=== PATIENT | female | born 1950 | race Caucasian/White ===

== ENCOUNTER 2024-10-09 16:41 | Emergency (ER) | payer MEDICARE, SELFPAY ==
--- NOTE | ~2024-10-09 | XR_ITS ---
CHEST RADIOGRAPH CLINICAL HISTORY: chest pain, rash . COMPARISON: None available TECHNIQUE: Single portable view of the chest. FINDINGS The cardiomediastinal silhouette is unremarkable. The lungs are clear. IMPRESSION: No focal infiltrate or effusion. Reviewed, dictated and finalized at location A.
[2024-10-09 16:46] VITALS: BP 97/64; PULSE 99; RESP 20; TEMP 36.4; O2SAT 98
--- NOTE | 2024-10-09 17:03 | ECG_ITS ---
Test Date: 2024-10-09 17:14:48 Measurements Intervals Gamaliel Rate: 90 P: 0 AR: 0 QRS: 52 QRSD: 92 T: 56 QT: 360 QTc: 442 Interpretive Statements ATRIAL FIBRILLATION WITH ABERRANT CONDUCTION OR VENTRICULAR PREMATURE COMPLEXES NONSPECIFIC ST & T-WAVE ABNORMALITY- DIFFUSE LEADS BASELINE WANDER- V1 ABNORMAL ECG No previous ECG available for comparison Electronically Signed On 10-09-2024 18:24:24 CDT by Trenton Cloud D.O.
--- NOTE | 2024-10-09 17:08 | ED.ALLEREA ---
HPI - Allergic Reaction General Chief complaint: Allergic Reaction <Albaro Salgado APRN - Last Filed: 10/09/24 17:10> Stated complaint: chest pain, ? allergic reaction <Albaro Salgado APRN - Last Filed: 10/09/24 17:10> Time Seen by Provider: 10/09/24 17:07 <Albaro Salgado APRN - Last Filed: 10/09/24 17:10> 74-year-old female brought in by EMS today complaining of chest pain in a possible urgent reaction. Patient says she start aspirin and Eliquis 2 days ago for history of AFib. Patient says she was taking her has been home when she developed nausea while driving. At a family member's house to lay down. After that she developed chest tightness and noticed a pruritic rash throughout her entire body. Patient is given Benadryl by EMS. Patient states she no longer feels itchy but still reports having chest tightness along with the rash. Patient denies any wheezing, difficulty breathing, swelling to her face, tongue, throat, nausea vomiting, or other symptoms. Focused HPI: GENERAL: Well-appearing, well-nourished, and in no acute distress. HEAD: Normocephalic, atraumatic. THROAT: Posterior pharynx is clear without any swelling, redness, or drainage. Uvula midline. CHEST: Clear to auscultation. Respiratory rate normal, respiratory effort nonlabored, no respiratory distress HEART: Regular rate and rhythm.? NEURO: ?Alert and oriented x3. SKIN: Hives scattered throughout the patient's trunk, arms, legs. Patient screened in triage and initial orders placed.? ?Additional care and disposition to be based upon?diagnostic testing and treatment. <Albaro Salgado APRN - Last Filed: 10/09/24 17:10> Related Data Allergies/adverse reactions: Allergies Allergy/AdvReac Type Severity Reaction Status Date / Time NONE Allergy Other Uncoded 10/09/24 17:04 <Albaro Salgado APRN - Last Filed: 10/09/24 17:10> Exam Narrative: APPEARANCE: No apparent distress. Head: atraumatic. EYES: EOMI, NOSE: Atraumatic NECK: Trachea midline RESPIRATORY: No increased rate of breathing clear to auscultation CARDIOVASCULAR: RRR, no peripheral edema ABDOMINAL: Non-distended soft nontender MUSCULOSKELETAl: No obvious deformities NEURO: Alert. Moving 4/4 extremities SKIN:: Pruritic rash over the abdomen PSYCHIATRIC: Normal affect <Jomar Moses MD - Last Filed: 10/09/24 21:14> Course Vital Signs Vital signs: Vital Signs Temperature 97.5 F L 10/09/24 16:46 Pulse Rate 99 10/09/24 16:46 Respiratory Rate 20 10/09/24 16:46 Blood Pressure 97/64 L 10/09/24 16:46 Pulse Oximetry 98 10/09/24 16:46 Oxygen Delivery Room Air 10/09/24 16:46 Temperature 97.5 F L 10/09/24 16:46 Pulse Rate 80 10/09/24 18:09 Respiratory Rate 18 10/09/24 18:09 Blood Pressure 142/82 H 10/09/24 18:09 Pulse Oximetry 100 10/09/24 18:09 Oxygen Delivery Room Air 10/09/24 17:17 <Albaro Salgado APRN - Last Filed: 10/09/24 17:10> Vital Signs Temperature 97.5 F L 10/09/24 16:46 Pulse Rate 99 10/09/24 16:46 Respiratory Rate 20 10/09/24 16:46 Blood Pressure 97/64 L 10/09/24 16:46 Pulse Oximetry 98 10/09/24 16:46 Oxygen Delivery Room Air 10/09/24 16:46 Temperature 97.5 F L 10/09/24 16:46 Pulse Rate 80 10/09/24 18:09 Respiratory Rate 18 10/09/24 18:09 Blood Pressure 142/82 H 10/09/24 18:09 Pulse Oximetry 100 10/09/24 18:09 Oxygen Delivery Room Air 10/09/24 17:17 <Jomar Moses MD - Last Filed: 10/09/24 21:14> MDM - Allergic Reaction MDM Narrative Medical decision making narrative: -Course: 74-year-old female presenting with a pruritic rash. Patient treated with Benadryl and Solu-Medrol with some improvement symptoms. She did not have chest pain that had resolved by time I evaluated her. EKG showed AFib with normal ventricular response. troponins negative x2 Chest x-ray was clear. Labs showed some minor electrolyte abnormalities which were repleted. Patient took a nap in our emergency department. When she awoke her symptoms had improved dramatically. She no longer has discoloration of her hands or per a rash. She is comfortable going home at this time. Patient will be discharged with instructions use Zyrtec as needed for itching. She will call her primary care physician tomorrow morning for follow-up. -DDX includes but is not limited to: Allergic reaction, anaphylaxis, ACS, viral syndrome, pneumonia <Jomar Moses MD - Last Filed: 10/09/24 21:14> Lab Data Result diagrams: 10/09/24 17:27 10/09/24 17:27 <Albaro Salgado APRN - Last Filed: 10/09/24 17:10> Labs: Lab Results 10/09/24 10/09/24 Range/Units 17:27 19:59 WBC 12.5 H (4.5-10.0) K/mm3 RBC 4.53 (4.2-5.4) M/mm3 Hgb 14.2 (12.0-15.0) g/dL Hct 40.9 (37.0-47.0) % MCV 90.3 (80-100) fl MCH 31.3 (26-34) pg MCHC 34.7 (32-36) g/dl RDW 12.9 (11.5-14.5) % Plt Count 239 (150-375) k/mm3 MPV 11.0 H (7.4-10.4) fl Immature Gran % (Auto) 0.4 (0-0.5) % Neut % (Auto) 70.3 (45.5-73.1) % Lymph % (Auto) 25.4 (18.3-44.2) % [place] % (Auto) 3.3 (2.6-8.5) % Eos % (Auto) 0.4 (0-4.4) % Baso % (Auto) 0.2 (0.2-1.2) % Lymph # (Auto) 3.17 (0.9-3.2) K/mm3 [place] # (Auto) 0.4 (0.1-0.6) K/mm3 Eos # (Auto) 0.1 (0-0.3) K/mm3 Baso # (Auto) 0.0 (0.0-0.1) K/mm3 Abs Immat Gran (auto) 0.05 H (0.00-0.031) K/mm3 Absolute Neuts (auto) 8.8 H (1.3-6.7) K/mm3 Absolute Nucleated RBC 0.000 (0.0-0.012) K/mm3 Nucleated RBC % 0.0 (0.0-0.2) % PT 15.6 H (11.1-14.7) Seconds INR 1.3 APTT 29.2 (22.3-36.8) Seconds Sodium 128 L (137-145) mmol/L Potassium 3.2 L (3.4-5.0) mmol/L Chloride 94 L (98-107) mmol/L Carbon Dioxide 25 (22-30) mmol/L Anion Gap 9 (4-12) mmol/L BUN 22 H (7-17) mg/dL Creatinine 1.14 H (0.7-1.0) mg/dL Estim Creat Clear Calc 41 ml/min Estimated GFR 46 L (59 - ) Glucose 172 H (65-110) mg/dL Calcium 9.3 (8.4-10.2) mg/dL Total Bilirubin 1.0 (0.2-1.3) mg/dL AST 45 H (14-36) U/L ALT 35 (6-35) U/L Alkaline Phosphatase 99 (38-126) U/L Troponin I < 0.012 Pending (0.000-0.034) ng/mL Total Protein 6.2 L (6.3-8.2) g/dL Albumin 3.8 (3.5-5.1) g/dL <Albaro Salgado, HOSPITALITY HOUSEKEEPER - Last Filed: 10/09/24 17:10> Lab Results 10/09/24 10/09/24 Range/Units 17:27 19:59 WBC 12.5 H (4.5-10.0) K/mm3 RBC 4.53 (4.2-5.4) M/mm3 Hgb 14.2 (12.0-15.0) g/dL Hct 40.9 (37.0-47.0) % MCV 90.3 (80-100) fl MCH 31.3 (26-34) pg MCHC 34.7 (32-36) g/dl RDW 12.9 (11.5-14.5) % Plt Count 239 (150-375) k/mm3 MPV 11.0 H (7.4-10.4) fl Immature Gran % (Auto) 0.4 (0-0.5) % Neut % (Auto) 70.3 (45.5-73.1) % Lymph % (Auto) 25.4 (18.3-44.2) % [place] % (Auto) 3.3 (2.6-8.5) % Eos % (Auto) 0.4 (0-4.4) % Baso % (Auto) 0.2 (0.2-1.2) % Lymph # (Auto) 3.17 (0.9-3.2) K/mm3 [place] # (Auto) 0.4 (0.1-0.6) K/mm3 Eos # (Auto) 0.1 (0-0.3) K/mm3 Baso # (Auto) 0.0 (0.0-0.1) K/mm3 Abs Immat Gran (auto) 0.05 H (0.00-0.031) K/mm3 Absolute Neuts (auto) 8.8 H (1.3-6.7) K/mm3 Absolute Nucleated RBC 0.000 (0.0-0.012) K/mm3 Nucleated RBC % 0.0 (0.0-0.2) % PT 15.6 H (11.1-14.7) Seconds INR 1.3 APTT 29.2 (22.3-36.8) Seconds Sodium 128 L (137-145) mmol/L Potassium 3.2 L (3.4-5.0) mmol/L Chloride 94 L (98-107) mmol/L Carbon Dioxide 25 (22-30) mmol/L Anion Gap 9 (4-12) mmol/L BUN 22 H (7-17) mg/dL Creatinine 1.14 H (0.7-1.0) mg/dL Estim Creat Clear Calc 41 ml/min Estimated GFR 46 L (59 - ) Glucose 172 H (65-110) mg/dL Calcium 9.3 (8.4-10.2) mg/dL Total Bilirubin 1.0 (0.2-1.3) mg/dL AST 45 H (14-36) U/L ALT 35 (6-35) U/L Alkaline Phosphatase 99 (38-126) U/L Troponin I < 0.012 Pending (0.000-0.034) ng/mL Total Protein 6.2 L (6.3-8.2) g/dL Albumin 3.8 (3.5-5.1) g/dL <Jomar Moses MD - Last Filed: 10/09/24 21:14> Discharge Plan Discharge Clinical Impression: Allergic reaction <Albaro Salgado APRN - Last Filed: 10/09/24 17:10> Patient Disposition: Home <Albaro Salgado APRN - Last Filed: 10/09/24 17:10> Condition: Stable <Albaro Salgado APRN - Last Filed: 10/09/24 17:10> Instructions: Antibiotic Form, General Allergic Reaction (ED) <Albaro Salgado APRN - Last Filed: 10/09/24 17:10> Additional Instructions: You were seen in emergency department for allergic reaction. Please use Benadryl or Zyrtec as needed for itching. If you develop chest pain difficulty breathing or worsening symptoms he can return to the ED for re-evaluation. Please call your primary care physician tomorrow morning to arrange close follow-up next 5-7 days. <Albaro Salgado APRN - Last Filed: 10/09/24 17:10> Patient Language: Danish <Albaro Salgado APRN - Last Filed: 10/09/24 17:10> Follow-up/Referrals: PHYSICIAN NOT ON STAFF,NONSTAFF [Primary Care Provider] - <Albaro Salgado APRN - Last Filed: 10/09/24 17:10>
[2024-10-09 17:11] VITALS: BP 120/69; PULSE 91; RESP 23; O2SAT 99
[2024-10-09] MEDS: SODIUM CHLORIDE 0.9% IV 500 ML 999 ML IV CONT (17:13)
[2024-10-09] MEDS: FAMOTIDINE 20 MG/2 ML VIAL IV PUSH (17:14)
[2024-10-09 17:17] VITALS: O2SAT 100
[2024-10-09 17:34] LABS: Hematocrit 40.9 % (37.0-47.0); Hemoglobin 14.2 g/dL (12.0-15.0); Immature Granulocyte Percent A 0.4 % (0-0.5); Lymphocytes Absolute Auto 3.17 K/mm3 (0.9-3.2); Mean Corpuscular HGB Conc 34.7 g/dl (32-36); Mean Corpuscular Hemoglobin 31.3 pg (26-34); Mean Corpuscular Volume 90.3 fl (80-100); Nucleated Red Blood Cells Absolute Auto 0.000 K/mm3 (0.0-0.012); Nucleated Red Blood Cells Perc 0.0 % (0.0-0.2); Platelet Count Result 239 k/mm3 (150-375); Red Blood Count 4.53 M/mm3 (4.2-5.4); White Blood Count 12.5 K/mm3 (4.5-10.0)
[2024-10-09 17:44] LABS: INR 1.3; Prothrombin Time 15.6 Seconds (11.1-14.7)
[2024-10-09 17:45] LABS: Partial Thromboplastin Time 29.2 Seconds (22.3-36.8)
[2024-10-09 18:02] LABS: Troponin I < 0.012 ng/mL (0.000-0.034)
[2024-10-09 18:09] VITALS: BP 142/82; PULSE 80; RESP 18; O2SAT 100
[2024-10-09 19:09] LABS: Alanine Aminotransferase 35 U/L (6-35); Albumin Level 3.8 g/dL (3.5-5.1); Alkaline Phosphatase 99 U/L (38-126); Anion Gap 9 mmol/L (4-12); Aspartate Amino Transferase 45 U/L (14-36); Bilirubin,Total 1.0 mg/dL (0.2-1.3); Blood Urea Nitrogen 22 mg/dL (7-17); Calcium 9.3 mg/dL (8.4-10.2); Carbon Dioxide 25 mmol/L (22-30); Chloride 94 mmol/L (98-107); Estimated CRCL calculation 41 ml/min; Estimated Glomerular Filt Rate 46; Glucose 172 mg/dL (65-110); Potassium 3.2 mmol/L (3.4-5.0); Sodium 128 mmol/L (137-145); Total Protein 6.2 g/dL (6.3-8.2)
--- OUTSIDE RECORDS SUMMARY | 2024-10-09 19:15 | XMS_ITS | Clinical Summary ---
Author Organization [facility] Address [address] [place] [id number] Care Team Providers Care Employee Benefits Coordinator Name Role Phone Delphine Fernández MD Primary Care Provider Allergies No known active allergies Active Problems Problem Noted Date Diagnosed Date GERD (gastroesophageal reflux disease) Essential (primary) hypertension 12/18/2014 Hyperlipidemia 01/02/2008 Encounters Date Type Department Care Team Description 10/03/2024 12:27 AM CDT - 10/03/2024 5:07 AM CDT Emergency [facility] Emergency Department [address] [place] [address] Cesar White MD PhD Chest pain, unspecified type (Primary Dx); Atrial fibrillation, unspecified type (HCC) Discharge Disposition: Discharge to home or self care from Last 3 Months Medical History Medical History Date Comments Hypertension Social History Tobacco Use Types Packs/Day Years Used Date Smoking Tobacco: Never Smokeless Tobacco: Never Tobacco Cessation:Counseling Given: Not Answered Alcohol Use Standard Drinks/Week Comments Never 0 (1 standard drink = 0.6 oz pur e alcohol) Personal Safety Answer Date Recorded Have you ever been in or are you currently in a harmful physical or emotional relationship or is someone making you feel afraid or unsafe? 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 Gender Identity Not on file Sexual Orientation Not on file Obstetrics History Last Filed Vital Signs Vital Sign Reading Time Taken Comments Blood Pressure 168/97 10/03/2024 5:00 AM CDT Pulse 67 10/03/2024 5:00 AM CDT Temperature 36.4 C (97.5 F) 10/03/2024 1:28 AM CDT Respiratory Rate 14 10/03/2024 5:00 AM CDT Oxygen Saturation 100% 10/03/2024 5:00 AM CDT Inhaled Oxygen Concentration - - Weight 90.7 kg (200 lb) 10/03/2024 12:33 AM CDT Height 162.6 cm (5' 4) 10/03/2024 12:33 AM CDT Body Mass Index 34.33 10/03/2024 12:33 AM CDT Plan of Treatment Health Maintenance Due Date Last Done Comments Colon Cancer Screening-Colonoscopy 1950 Depression Screening 1950 Fall Risk Assessment 1950 Hepatitis C Screening 1950 Osteoporosis Screening-Bone Density Scan 1950 Hepatitis B Screening 09/18/1967 Pneumococcal vaccine 65+ (1 of 1 - PCV) 09/18/1999 Zoster Vaccine (1 of 2) 09/18/1999 DTaP/Tdap/Td Vaccine (1 - Tdap) 07/06/2003 4 Well Visit 65+ 2014 Influenza Vaccine (#1) 2024 03/14/2008 Procedures Procedure Name Priority Date/Time Associated Diagnosis Comments TROPONIN T HIGH-SENSITIVITY 2-HOUR Timed 10/03/2024 2:32 AM CDT XR CHEST PA LATERAL 2 VIEWS ED 10/03/2024 1:22 AM CDT EGFR STAT 10/03/2024 12:47 AM CDT DIFFERENTIAL AUTO STAT 10/03/2024 12: 47 AM CDT D-DIMER, QUANTITATIVE STAT 10/03/2024 12:47 AM CDT TROPONIN T HIGH-SENSITIVITY SERIES (BASELINE, 2HR, 4HR, 6HR) STAT 10/03/2024 12:47 AM CDT COMPREHENSIVE METABOLIC PANEL STAT 10/03/2024 12:47 AM CDT CBC WITH AUTO DIFFERENTIAL STAT 10/03/2024 12:47 AM CDT ECG 12-LEAD STAT 10/03/2024 12:34 AM CDT from Last 3 Months Results * Troponin T high-sensitivity 2-hour (10/03/2024 2:32 AM CDT) Trop T hs 13 <=14 ng/L Comment: Interpretive Data For further hscTnT resources including the diagnostic algorithm and an aid in interpretation, copy and paste this link: https://nrl.testcatalog.org/show/hsTrop Current Interpretive Data last revised 2020. Trop T hs delta -1 ng/L [facility] Trop T hs interp Insignificant [facility]ERNER PH C Blood 10/03/2024 2:32 AM CDT 10/03/2024 2:33 AM CDT us Cesar White MD PhD LAB BLOOD ORDERABLE S Final Result [facility] [address] [facility] Department [place] [address] * XR Chest PA Lateral 2 Views (If patient hemodynamically stable and ambulatory) (10/03/2024 1:22 AM CDT) Anatomical Region Laterality Modality Body, Chest N/A Computed Radiogr aphy 10/03/2024 8:27 AM CDT Impressions 10/03/2024 8:27 AM CDT No evidence of acute cardiopulmonary process. Electronically signed by: Jesus Padron M.D. Narrative 10/03/2024 8:27 AM CDT CHEST TWO VIEWS COMPARISON: None. HISTORY: chest pain FINDINGS: Lungs are fully expanded and clear. No focal consolidation or nodule/mass. Pulmonary vasculature is within normal limits. Cardiac silhouette is normal in size and contour. The mediastinum and osvaldo appear unremarkable. Diaphragms are normal in position and contour. Costophrenic angles are sharp. Bony thorax shows no acute abnormalities. No free air under the diaphragm. Procedure Note Jesus Padron MD - 10/03/2024 CHEST TWO VIEWS COMPARISON: None. HISTORY: chest pain FINDINGS: Lungs are fully expanded and clear. No focal consolidation or nodule/mass. Pulmonary vasculature is within normal limits. Cardiac silhouette is normal in size and contour. The mediastinum and osvaldo appear unremarkable. Diaphragms are normal in position and contour. Costophrenic angles are sharp. Bony thorax shows no acute abnormalities. No free air under the diaphragm. IMPRESSION: No evidence of acute cardiopulmonary process. Electronically signed by: Jesus Padron M.D. us Cesar White MD PhD IMG XR PROCEDURES F inal Result * Troponin T high-sensitivity series (baseline, 2hr, 4hr, 6hr) (10/03/2024 12:47 AM CDT) Trop T hs 14 <=14 ng/L Comment: Interpretive Data For further hscTnT resources including the diagnostic algorithm and an aid in interpretation, copy and paste this link: https://nrl.testcatalog.org/show/hsTrop Current Interpretive Data last revised 2020. Blood 10/03/2024 12:4 7 AM CDT 10/03/2024 12:49 AM CDT us Cesar White MD PhD LAB BLOOD ORDERABLE S Final Result [facility] [address] [facility] Department [place] [address] * (ABNORMAL) eGFR (10/03/2024 12:47 AM CDT) eGFR 59(L) >=60 mL/min/1. 73 m2 Comment: Interpretive Data Reference Interval Normal >/= 90 mL/min/1.73m2 Mildly decreased* 60 - 89 mL/min/1.73m2 Mildly to moderately decreased 45 - 59 mL/min/1.73m2 Moderately to severely decreased 30 - 44 mL/min/1.73m2 Severely decreased 15 - 29 mL/min/1.73m2 Kidney Failure < 15 mL/min/1.73m2 *Relative to young adult level Estimated glomerular filtration rate is determined by the 2020 CKD-EPI equation recommended by the National Kidney Foundation (A Unifying Approach to GFR Estimation: Recommendations of the NKF-ASK Task Force on Reassessing the Inclusion of Race in Diagnosing Kidney Disease, JASN 2020). The CKD-EPI equation should not be used for patients with unstable renal function and has not been validated in children and those over 70. Current interpretive data was last reviewed 2021. Blood 10/03/2024 12:4 7 AM CDT 10/03/2024 12:49 AM CDT us Cesar White MD PhD LAB BLOOD ORDERABLE S Final Result [facility] [address] [facility] Department [place] [address] * (ABNORMAL) Differential, auto (10/03/2024 12:47 AM CDT) Neutrophil abs 4.14 1.50 - 6.50 K/cumm Imm gran abs 0.03 0.00 - 0.10 K/cumm [facility] Lymphocyte abs 3.32(H) 0.80 - 3.30 K/cumm [facility] Monocyte abs 0.75 0.20 - 0.80 K/cumm [facility] Eosinophil abs 0.12 0.00 - 0.50 K/cumm [facility] Basophil abs 0.04 0.00 - 0.10 K/cumm [facility] Neutrophil pct 49.3 % [facility] Comment: Interpretive Data Percent cell count reference ranges are not reported, since discordance with absolute values may lead to misinterpretation of CBC data. Current Interpretive Data was last revised on 2017. Imm gran pct 0.4 % [facility] Comment: Interpretive Data Percent cell count reference ranges are not reported, since discordance with absolute values may lead to misinterpretation of CBC data. Current Interpretive Data was last revised on 2017. Lymphocyte pct 39.5 % [facility] Comment: Interpretive Data Percent cell count reference ranges are not reported, since discordance with absolute values may lead to misinterpretation of CBC data. Current Interpretive Data was last revised on 2017. Monocyte pct 8.9 % [facility] Comment: Interpretive Data Percent cell count reference ranges are not reported, since discordance with absolute values may lead to misinterpretation of CBC data. Current Interpretive Data was last revised on 2017. Eosinophil pct 1.4 % [facility] Comment: Interpretive Data Percent cell count reference ranges are not reported, since discordance with absolute values may lead to misinterpretation of CBC data. Current Interpretive Data was last revised on 2017. Basophil pct 0.5 % [facility] Comment: Interpretive Data Percent cell count reference ranges are not reported, since discordance with absolute values may lead to misinterpretation of CBC data. Current Interpretive Data was last revised on 2017. Blood 10/03/2024 12:4 7 AM CDT 10/03/2024 12:49 AM CDT Cesar White MD PhD LAB BLOOD ORDERABLE S Final Result [facility] [address] [facility] Department [place] [address] * CBC with auto differential (10/03/2024 12:47 AM CDT) WBC 8.40 3.80 - 9.90 K/cumm Hgb 13.5 11.9 - 15.5 g/dL [facility] Hct 38.3 35.6 - 45.5 % [facility] Plt 220 150 - 400 K/cumm [facility] MPV 10.7 9.1 - 12.3 fL [facility] RBC 4.24 3.90 - 5.20 M/cumm [facility] MCV 90.3 81.3 - 96.4 fL [facility] MCH 31.8 27.1 - 33.3 pg [facility] MCHC 35.2 32.3 - 35.7 g/dL [facility] RDW CV 12.8 11.1 - 14.9 % [facility] RDW SD 41.4 35.7 - 48.1 fL [facility] NRBC abs 0.00 0.00 - 0.01 K/cumm [facility] Blood Venous blood specimen / Unknown 10/03/2024 12:47 AM CDT 10/03/2024 12:49 AM CDT Cesar White MD PhD LAB BLOOD ORDERABLE S Final Result Performing Organization Address [facility] Co de Phone Number [facility] [address] [facility] [place] [address] * D-dimer, quantitative (10/03/2024 12:47 AM CDT) D-Dimer 461 <=499 ng/mL FEU Comment: Interpretive data FDA approved the D-dimer, in conjunction with a low or moderate pretest probability score, to exclude venous thromboembolic events (VTE) (PE and DVT) in outpatients when the D-dimer result is < 500 ng/ml FEU. Evidence supports using an age-adjusted D-dimer cut-off for outpatients older than 50 (age x 10) to improve specificity without sacrificing sensitivity. Example: age 68, VTE cut-off 680 ng/ml FEU. References; Schouten HT et al. Brit Med J. 2013;346:f2492. Lillie et al. Annals Int Med. 2015;163:701-11. Current interpretive data was last revised on 2019. Blood 10/03/2024 12:4 7 AM CDT 10/03/2024 12:49 AM CDT Cesar White MD PhD LAB BLOOD ORDERABLE S Final Result Performing Organization Address [facility] Co de Phone Number [facility] [address] [facility] [place] [address] * (ABNORMAL) Comprehensive metabolic panel (10/03/2024 12:47 AM CDT) Pathologist [facility] Sodium 136 135 - 145 mmol/L Potassium, pl 3.9 3.3 - 4.9 mmol/L [facility] Chloride 94(L) 97 - 110 mmol/L [facility] CO2 30 22 - 32 mmol/L [facility] Anion gap 12 2 - 15 mmol/L [facility] BUN 20 6 - 25 mg/dL [facility] Creatinine 0.99 0.60 - 1.10 mg/dL [facility] Glucose 116 70 - 199 mg/dL [facility] Comment: Interpretive Data Fasting glucose >/= 126 mg/dl is diagnostic for diabetes. Fasting is defined as no caloric intake for at least 8 hours. Fasting glucose between 100 mg/dl to 125 mg/dl is diagnostic of prediabetes. In a patient with classic symptoms of hyperglycemia or hyperglycemic crisis, a random glucose >/= 200 mg/dl is diagnostic for diabetes. In the absence of unequivocal hyperglycemia, results should be confirmed by repeat testing. The classification and Diagnosis of Diabetes Diabetes Care 202; 46: S19-S40. Current interpretive data was last revised 2022. Calcium 9.7 8.5 - 10.3 mg/dL [facility] Bilirubin, total 0.6 0.1 - 1.2 mg/dL [facility] Protein, pl 6.6 6.5 - 8.5 g/dL [facility] Albumin 4.0 3.5 - 5.0 g/dL [facility] Alk phos 112 40 - 130 Units/L [facility] ALT 30 7 - 45 Units/L [facility] AST 35 10 - 45 Units/L [facility] Comment:HEMOLYZED; Blood 10/03/2024 12:4 7 AM CDT 10/03/2024 12:49 AM CDT us Cesar White MD PhD LAB BLOOD ORDERABLE S Final Result [facility] [address] [facility] Department [place] [address] * ECG 12 lead (10/03/2024 12:34 AM CDT) 10/03/2024 12:3 4 AM CDT Narrative [facility] - 10/03/2024 10:27 AM CDT Vent Rate: 78 bpm RR Interval: 768 msec NE Interval: 0 msec QRS Duration: 98 msec QT Interval: 379 msec QTC Interval: 412 msec P-R-T [place]: [id number] - 77 - 48 degrees IMPRESSION: ATRIAL FIBRILLATION MINIMAL ST DEPRESSION ABNORMAL RHYTHM ECG Electronically Signed By: Mehnaz Michelle MD us Cesar White MD PhD ECG ORDERABLES Fin al Result [facility] from Last 3 Months Insurance MEDICARE [facility] [place] [id number] Care Teams Employee Benefits Coordinator Relationship Specialty Start Date End Date Delphine Fernández MD [address] [facility] [address] [place] [address] PCP - General Family Medicine 10/03/24
--- OUTSIDE RECORDS SUMMARY | 2024-10-09 19:15 | XMS_ITS | Encounter Summary ---
Author Organization [facility] Address [address] [place] [address] Care Team Providers Care Crop Consultant Name Role Phone Pradeep Delphine Stuart DO Primary Care Provider [phone] Chiqui Heath APNP Unavailable [phone] Reason for Visit * Reason Comments Image (SCAN) ECG (SCAN) Lab (SCAN) Encounter Details Date Type Department Care Team (Late st Contact Info) Description 10/03/2024 Scan HEALTH INFO [facility] Scanned, [facility] Image (SCAN); ECG (SCAN); Lab (SCAN) Social History Tobacco Use Types Packs/Day Years Used Date Smoking Tobacco: Never Passive Smoke Exposure: Never Smokeless Tobacco: Never Alcohol Use Standard Drinks/Week Comments Not Currently 0 (1 standard drink = 0.6 oz pur e alcohol) rarely AUDIT-C Answer Date Recorded Frequency of Alcohol Consumption Never 09/13/2018 Average Number of Drinks Not on file 019 Frequency of Binge Drinking Not on file 09/03 PHQ-2 Answer Date Recorded Patient Health Questionnaire-2 Score 0 09/30/2024 Comments No Sex and Gender Information Value Date Recorded Sex Assigned at Female 09/30/2024 2:59 PM CDT Legal Sex Female 6:20 PM CDT Gender Identity Not on file Sexual Orientation Not on file documented as of this encounter Plan of Treatment Upcoming Encounters Date Type Department Care Team (Late st Contact Info) Description 10/22/2024 9:00 AM CDT Appointment [facility] [address] [place] [address] Delphine Fernández, [address] [place] [address] documented as of this encounter Procedures Procedure Name Priority Date/Time Associated Diagnosis Comments ECG GENERIC (SCAN ORDER) 10/03/2024 OUTSIDE LAB (SCAN ORDER) 10/03/2024 OUTSIDE LAB (SCAN ORDER) 10/03/2024 OUTSIDE LAB (SCAN ORDER) 10/03/2024 OUTSIDE LAB (SCAN ORDER) 10/03/2024 IMAGE GENERIC 10/03/2024 documented in this encounter Results * OUTSIDE LAB (SCAN ORDER) (10/03/2024) 10/03/2024 [facility] Scanned SCANNING Final Resu lt * OUTSIDE LAB (SCAN ORDER) (10/03/2024) 10/03/2024 [facility] Scanned SCANNING Final Resu lt * OUTSIDE LAB (SCAN ORDER) (10/03/2024) 10/03/2024 [facility] Scanned SCANNING Final Resu lt * OUTSIDE LAB (SCAN ORDER) (10/03/2024) 10/03/2024 [facility] Scanned SCANNING Final Resu lt * IMAGE GENERIC (10/03/2024) Anatomical Region Laterality Modality Other 10/03/2024 [facility] Scanned SCANNING Final Resu lt * ECG GENERIC (SCAN ORDER) (10/03/2024) 10/03/2024 [facility] Scanned SCANNING Final Resu lt documented in this encounter Visit Diagnoses Not on filedocumented in this encounter Additional Health Concerns Assessment Noted Time PHQ-9 Depression Total Score: 0 02/29/20 23 8:18 AM OFFICE TECHNICIAN documented as of this encounter Care Teams Crop Consultant Relationship Specialty Start Date End Date Delphine Fernández DO [address] [place] [address] PCP - General 09/27/16 Chiqui Heath APNP [id number] [id number] PCP - [facility] - [facility] Attributed Provider 12/04/16 documented as of this encounter
--- OUTSIDE RECORDS SUMMARY | 2024-10-09 19:15 | XMS_ITS | Encounter Summary ---
Author Organization [facility] Address [address] [place] [address] Care Team Providers Care Realtime Court Reporter Name Role Phone Delphine Fernández DO Primary Care Provider [phone] Chiqui Heath APNP Unavailable [phone] Reason for Referral * Consultation (Urgent) - New Request Specialty Diagnoses / Procedures Referred By Naeem t Referred To Contact CARDIOLOGY / Cardiology Diagnoses Paroxysmal atrial fibrillation ([facility]/HCC [facility]) Procedures OFFICE/OUTPATIENT NEW LOW MDM 30-44 MINUTES OFFICE/OUTPT VISIT,NEW,LEVL IV OFFICE/OUTPT VISIT,NEW,LEVL V OFFICE/OUTPT VISIT,EST,LEVL III OFFICE/OUTPT VISIT,EST,LEVL IV OFFICE/OUTPT VISIT,EST,LEVL V Delphine Fernández DO [address] [place] [address] Phone: tel: fax: [facility], [facility] [address] [place] [address] Phone: tel: fax: Referral ID Status Reason Start Date Expiration Date Visits Requested Visits Authorized [id number] New Request Specialty Services 10/04/2024 11/05/2025 1 1 Scheduling Instructions New onset A Fib * Imaging (Urgent) - Authorized Specialty Diagnoses / Procedures Referred By Contflorentin t Referred To Contact RADIOLOGY Diagnoses Paroxysmal atrial fibrillation ([facility]/HCC [facility]) Procedures USE ECHOCARDIOGRAM Delphine Fernández DO [address] [place] [address] Phone: tel: fax: Referral ID Status Reason Start Date Expiration Date V isits Requested Visits Authorized [id number] Authorized 10/04/2024 10/04/2025 1 1 Reason for Visit * Reason Comments ER F/U Pt went to ED in [place] for chest pains and is f/u Encounter Details Date Type Department Care Team (Late st Contact Info) Description 10/04/2024 11:20 AM CDT Office Visit [facility] [place] [address] [place] [address] Delphine Fernández DO [address] [place] [address] ER F/U (Pt went to ED in [place] for chest pains and is f/u) Social History Tobacco Use Types Packs/Day Years Used Date Smoking Tobacco: Never Passive Smoke Exposure: Never Smokeless Tobacco: Never Tobacco Cessation:Counseling Given: No Alcohol Use Standard Drinks/Week Comments Not Currently [...] on file documented as of this encounter Last Filed Vital Signs Vital Sign Reading Time Taken Comments Blood Pressure 130/70 10/04/2024 11:24 AM CDT Pulse 56 10/04/2024 11:24 AM CDT Temperature 36.4 C (97.5 F) 10/04/2024 11:24 AM CDT Respiratory Rate 18 10/04/2024 11:24 AM CDT Oxygen Saturation 98% 10/04/2024 11:24 AM CDT Inhaled Oxygen Concentration - - Weight 90 kg (198 lb 6.4 oz) 10/04/2024 11:24 AM CDT Height - - Body Mass Index 33.79 09/30/2024 3:03 PM CDT documented in this encounter Progress Notes * Delphine Fernández, DO - 10/04/2024 11:20 AM CDT Images from the original note were not included. Office Progress Note Encounter Date: 10/04/2024 Reason for Visit: ER F/U (Pt went to ED in [place] for chest pains and is f/u) History of Present Illness: Bradly Castro is a 74-year-old female here for follow-up to emergency room visit on October 03. 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 They had actually been staying with family in [place] so she thought about not going but then she went ahead and went to the emergency room because of the persistent chest pain. She had an extensive workup in the ER and was diagnosed with new onset atrial fibrillation. Her D- dimers were negative her cardiac enzymes were negative. Her pain actually improved while she was in the hospital however she remained in A-fib. Her heart rate however remained controlled and she had already been on metoprolol for her history of hypertension. We had actually seen her in the office on the at that point in time her heart rate was not irregular. Her last EKG was in 2021 and was sinus rhythm. She is not currently having any chest pain. Not having any dizzy episodes or palpitations. Patient did bring in a copy of her EKG from the ER which does not clearly show that she is in A-fibwith controlled ventricular rate. ROS: Review of Systems Constitutional: Negative for chills, fatigue and fever. HENT: Negative for congestion, ear pain and sore throat. Respiratory: Negative for cough and shortness of breath. Cardiovascular: Positive for chest pain. Negative for palpitations. Gastrointestinal: Negative for abdominal pain, constipation and diarrhea. Genitourinary: Negative for dysuria. Musculoskeletal: Positive for arthralgias. Neurological: Negative for dizziness and headaches. Psychiatric/Behavioral: The patient is not nervous/anxious. Medications: Medications Taking[1] Allergies: Review of patient's allergies indicates: Allergen Reactions Aricept [Donepezil Hcl] GI Upset Medical History: Past Medical History[2] Surgical History: Past Surgical History[3] Social History: Social History[4] Family History: Family History[5] PE: Filed Vitals: 10/04/24 1124 BP: 130/70 Pulse: (!) 56 Resp: 18 Temp: 97.5 ??F (36.4 ??C) TempSrc: Skin SpO2: 98% Weight: 90 kg (198 lb 6.4 oz) Body mass index is 33.79 kg/m??. PHQ-9: 08/24/2023 10:12 AM 09/30/2024 3:02 PM PHQ2/PHQ 9 DEPRESSION SCREEN QUESTIONAIRE Little interest or pleasure in doing things Not at all Not at all Feeling down, depressed, or hopeless Not at all Not at all Patient Health Questionnaire-2 Score 0 0 How difficult have these problems made it for you to do your work, take care of things at home, or get along with other people? Not difficult at all Not difficult at all Physical Exam Vitals and nursing note reviewed. Constitutional: General: She is not in acute distress. Appearance: She is well-developed. HENT: Head: Normocephalic. Neck: Thyroid: No thyromegaly. Cardiovascular: Rate and Rhythm: Normal rate. Rhythm irregular. Heart sounds: Normal heart sounds. No murmur heard. Pulmonary: Effort: Pulmonary effort is normal. Breath sounds: Normal breath sounds. No wheezing. Musculoskeletal: Right lower leg: No edema. Left lower leg: No edema. Psychiatric: Mood and Affect: Mood normal. Behavior: Behavior normal. EKG: A fib with slow rate Diagnoses/Impression: 1. Paroxysmal atrial fibrillation ([facility]) ELECTROCARDIOGRAM (NON MIDMARK ACQUIRED) apixaban (ELIQUIS) 5 MG tablet USE ECHOCARDIOGRAM Ambulatory referral to Cardiology, Adult ([facility]) 2. Essential (primary) hypertension Recommendations and Plan: 1. Paroxysmal atrial fibrillation ([facility]/HCC HHS/HCC) (Primary) Patient does not have any chest pains or palpitations at this time however unfortunately she is still certainly in A-fib which appears to be a change from earlier this week. It is audibly irregular. EKG also confirms that she is in A- fib with actually some slower heart rate. She is already on the metoprolol which is helping to control the heart rate. We discussed that her clotting vascular score is actually a 4 in the female that means she really should be on anticoagulation more than just an aspirin. She does remove the ER doctor telling she did take an aspirin she just had not started that yet or also can get her started on Eliquis. I do think we need further workup to get her set up for an echo to look at the function of the heart and we also need to get her into cardiology. They were getting ready to start talking about going back to [place] for the winter even transferring her 's chemo treatment there but I really would like for her to hold off going until she talks to cardiology. Advised patient if she starts to have chest pain again like she had that time she still should go to the emergency room. - ELECTROCARDIOGRAM (NON MIDMARK ACQUIRED) ChadsVasc Score: 4 2. Essential (primary) hypertension Patient currently controlled on current treatment for hypertension. Will continue. Continued to discuss weight loss, adequate cardiovascular fitness. DASH diet was discussed as well as decrease in sodium intake. BP goal of < 140/90 expressed. DELPIHNE FERNÁNDEZ DO 10/04/2024 [1] Outpatient Medications Marked as Taking for the 10/04/24 encounter (Office Visit) with Delphine Fernández DO Medication Sig Dispense Refill apixaban (ELIQUIS) 5 MG tablet Take 1 tablet (5 mg total) by mouth 2 (two) times daily. 60 tablet 3 atorvastatin (LIPITOR) 10 MG tablet Take 1 tablet by mouth once daily 90 tablet 0 calcium carbonate 600 MG tablet Take 1 tablet (600 mg total) by mouth. calcium carbonate-vitamin D 600-200 MG-UNIT Tab Take by mouth 2 (two) times daily. hydroCHLOROthiazide (HYDRODIURIL) 25 MG tablet Take 1 tablet (25 mg total) by mouth every morning. 90 tablet 3 memantine ER (NAMENDA XR) 28 MG 24 hr capsule Take 1 capsule (28 mg total) by mouth daily. 90 capsule 3 metoprolol tartrate (LOPRESSOR) 50 MG tablet Take 1 tablet (50 mg total) by mouth 2 (two) times daily. 180 tablet 3 multi vitamin/minerals tablet Take 1 tablet by mouth daily. telmisartan (MICARDIS) 20 MG Tab Take 1 tablet (20 mg total) by mouth daily. 90 tablet 3 [2] Past Medical History: Diagnosis Date Arthritis Mar 2021 Cyst of right kidney Hyperlipidemia Hypertension Mar 1979 [3] Past Surgical History: Procedure Laterality Date BREAST BIOPSY CATARACT SURGERY, COMPLEX COLOGUARD (AMBULATORY) 09/24/2018 POSITIVE COLONOSCOPY N/A 03/04/2019 COLONOSCOPY WITH descending colon polypectomy via hot snare performed by Victor Manuel Chandler MD at [facility] JOINT REPLACEMENT Both knees replaced REPAIR BROW PTOSIS SURG US BREAST RT 02/22/2017 f/u after surgery, bi-rads category 3- probably benign, f/u in 6 months TOTAL KNEE ARTHROPLASTY Bilateral 09/2019 [4] Social History Tobacco Use Smoking status: Never Passive exposure: Never Smokeless tobacco: Never Vaping Use Vaping status: Never Used Substance Use Topics Alcohol use: Not Currently Comment: rarely Drug use: Never [5] Family History Problem Relation Name Age of Onset RI Father Edgardo Bradley Hypertension Father Edgardo Bradley Other (atrial fibrilation) Brother Hyperlipidemia Mother NELSY YADAVS Hypertension Mother NELSY YADAVS Alzheimers Mother NELSY BRADLEY Hypertension Sister Kidney Disease Sister Had growth removed documented in this encounter Plan of Treatment Upcoming Encounters Date Type Department Care Team (Late st Contact Info) Description 10/22/2024 9:00 AM CDT Appointment [facility] [address] [place] [address] Delphine Fernández DO [address] [place] [address] Scheduled Orders Name Type Priority Associated Diagnoses Orde r Schedule USE ECHOCARDIOGRAM ECHO NICHOLAS Paroxysmal atrial fibrillation Expected: 10/04/2024, Expires: 10/04/2025 Scheduled Referrals Name Type Priority Associated Diagnoses Orde r Schedule Ambulatory referral to Cardiology, Adult ([facility] [place]) Referral Routine Paroxysmal atrial fibrillation Ordered: 10/04/2024 documented as of this encounter Procedures Procedure Name Priority Date/Time Associated Diagnosis Comments ELECTROCARDIOGRAM (NON MIDMARK ACQUIRED) Routine 10/04/2024 11:49 AM CDT Paroxysmal atrial fibrillation ([facility]) documented in this encounter Results * ELECTROCARDIOGRAM (NON MIDMARK ACQUIRED) (10/04/2024 11:49 AM CDT) 10/04/2024 11:4 9 AM CDT Narrative [facility] - 10/04/2024 11:52 AM CDT [place] [address] [place] [address] Test Date: 2024-10-04 Pat Name: BRADLY [facility] Department: 171 Room: Gender: Female Research Epidemiologist: : 1950 Requested By: DELPHINE FERNÁNDEZ Order Number: [id number] Reading MD: Delphine Fernández Measurements Intervals [place] Rate: 54 P: 0 AL: 0 QRS: 56 QRSD: 106 T: 35 QT: 407 QTc: 388 Interpretive Statements ATRIAL FIBRILLATION WITH SLOW VENTRICULAR RESPONSE MODERATE INTRAVENTRICULAR CONDUCTION DELAY I reviewed and agree with the above findings. Procedure Note Delphine Fernández DO - 10/04/2024 [facility] [address] [address] Test Date: 2024-10-04 Pat Name: BRADLY CASTRO Department: 171 Room: Gender: Female Research Epidemiologist: : 1950 Requested By: DELPHINE FERNÁNDEZ Order Number: [id number] Reading MD: Delphine Fernández Measurements Intervals [place] Rate: 54 P: 0 AL: 0 QRS: 56 QRSD: 106 T: 35 QT: 407 QTc: 388 Interpretive Statements ATRIAL FIBRILLATION WITH SLOW VENTRICULAR RESPONSE MODERATE INTRAVENTRICULAR CONDUCTION DELAY I reviewed and agree with the above findings. Delphine Fernández DO PROCEDURES-ORDERABLE NO CHARG E Final Result [facility] documented in this encounter Visit Diagnoses Diagnosis Paroxysmal atrial fibrillation (CMS/HCC HHS/HCC)- Primary Atrial fibrillation Essential (primary) hypertension Unspecified essential hypertension documented in this encounter Additional Health Concerns Assessment Noted Time PHQ-9 Depression Total Score: 0 02/29/20 23 8:18 AM YOUTH ASSOCIATE documented as of this encounter Care Teams Realtime Court Reporter Relationship Specialty Start Date End Date Delphine Fernández DO [address] [place] [address] PCP - General 09/27/16 Chiqui Heath APNP [id number] [address] PCP - [facility] - [facility] Attributed Provider 12/04/16 documented as of this encounter
--- OUTSIDE RECORDS SUMMARY | 2024-10-09 19:16 | XMS_ITS | Clinical Summary ---
Author Organization [facility] Address [address] [place] [address] Care Team Providers Care Party Host/Hostess Name Role Phone Delphine Fernández DO Primary Care Provider [phone] Source Comments [facility],non-owned Affiliates and Associated Physician Practices is amultiple site organization consisting of ambulatory clinics and hospital sitesin [place], [place], [place] and [place]. This disclosure is being madepursuant to the Care Everywhere program and may not contain all information available regarding this patient. Last updated 17.[facility] Allergies No known active allergies Medications * Be aware that medications may not be up to date on this document. Alwaysverify current medications with the patient. atorvastatin (LIPITOR) 10 MG tablet 0 Active hydroCHLOROthia zide (HYDRODIURIL) 25 MG tablet 0 Active metoprolol tartrate (LOPRESSOR) 50 MG tablet 0 Active Multiple Vitamins-Minera ls (MULTI VITAMIN/MINERAL S) TABS Take 1 tablet by mouth once daily Active Calcium Carb-Cholecalci ferol (CALCIUM + D3) 600-200 MG-UNIT Take by mouth 2 times daily Active omeprazole (PRILOSEC) 40 MG capsule 1 Active telmisartan (MICARDIS) 20 MG tablet Take 20 mg by mouth once daily Active Multiple Vitamins-Minera ls (ZINC PO) Take by mouth once daily Active calcium carbonate (CALTRATE) 600 MG tablet Take 600 mg by mouth once daily Active acetaminophen (TYLENOL) 325 MG tablet Take 2 (two) tablets by mouth every 6 hours as needed for Pain Maximum allowable Acetaminophen amount = 4 Grams (4000 mg) / 24 hours. 1 Active celecoxib (CELEBREX) 200 MG capsuleIndicati ons:Aftercare following left knee joint replacement surgery Take 1 (one) capsule by mouth 2 times daily 60 capsule 1 Active Active Problems Problem Noted Date Diagnosed Date Arthritis of knee 09/30/2019 Essential (primary) hypertension 12/18/2014 Overweight 12/18/2014 Diverticulitis of large inte rey without perforation or abscess without bleeding 10/06/2010 Overview (06/05/2017): On CT abd/pelvis, 10/06/10 Impaired fasting glucose 03/24/2010 Metatarsalgia 05/22/2008 Contact dermatitis 03/07/2008 Hyperlipidemia 01/02/2008 Immunizations Immunization Administration Dates Next Due INFLUENZA VACCINE, TRIV. (AF LURIA, FLUZONE TRIVALENT; 6MO+) (IIV3) 03/14/2008 TD (ADULT), 5 LF TETANUS TOXOID, ADSORBED, PF Family History Medical History Relation Name Comments Heart Failure Father of cardia c arrest; Status: Hypertension Father Dementia Mother High Cholesterol Mother Hypertension Mother Other Mother atrial fib, SDA T CVA Other 1 High Cholesterol Other 1 Hypertension Other 1 Other Other 1 mother's side Other Other 2 A-Fib, brother, mother, and multiple Aunts Relation Name Status Comments Father Mother Other 1 Other 2 Social History Tobacco Use Types Packs/Day Years Used Date Smoking Tobacco: Never Smokeless Tobacco: Never Alcohol Use Standard Drinks/Week Comments No 0 (1 standard drink = 0.6 oz pur e alcohol) Comments Unknown Sex and Gender Information Value Date Recorded Sex Assigned at Not on file 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 Gender Identity Not on file Sexual Orientation Not on file Last Filed Vital Signs Vital Sign Reading Time Taken Comments Blood Pressure 142/70 07/02/2020 11:03 AM CDT Pulse 64 07/02/2020 11:03 AM CDT Temperature 36.9 C (98.4 F) 07/02/2020 11:03 AM CDT Respiratory Rate 16 07/02/2020 11:03 AM CDT Oxygen Saturation 97% 07/02/2020 11:03 AM CDT Inhaled Oxygen Concentration - - Weight 87.3 kg (192 lb 6.4 oz) 07/01/2020 6:31 A M CDT Height 165.1 cm (5' 5) 07/01/2020 6:31 AM CDT Body Mass Index 32.02 07/01/2020 6:31 AM CDT Plan of Treatment Health Maintenance Due Date Last Done Comments BONE DENSITY TESTING 1950 COLOGUARD (AGES 45-75) - COLON CA SCREENING 1950 COLON MONITORING 1950 COLONOSCOPY - COLON CA SCREENING 1950 CT COLONOGRAPHY - COLON CA SCREENING 1950 Colorectal Cancer Screening 1950 FIT - COLON CA SCREENING 1950 FLEX SIG - COLON CA SCREENING 1950 MAMMOGRAM 1950 HEPATITIS C SCREENING 09/13/1967 PNEUMOCOCCAL VACCINE 50+ (1 of 1 - PCV) 09/18/1999 ZOSTER VACCINE (1 of 2) 09/18/1999 DTAP/TDAP/TD VACCINES (2 - Td or Tdap) 07/04/2013 07/05/2003 SCREENING FOR DIABETES 06/20/2023 1, 05/05/2020, 04/20/2020, Additional history exists COVID-19 VACCINE ( season) 2023 07/21/2020, 06/23/2020 DEPRESSION SCREENING 03/06/2024 Respiratory Syncytial Virus (RSV) Vaccine Pt: or over 60 yrs (1 - 1-dose 75+ series) 2024 INFLUENZA VACCINE (#1) 2024 0, 12/04/2017, 12/26/2016, Additional history exists HEPATITIS B VACCINE Aged Out No longe r eligible based on patient's age to complete this topic HIB VACCINE Aged Out No longer eligi ble based on patient's age to complete this topic HPV VACCINE Aged Out No longer eligi ble based on patient's age to complete this topic MENINGOCOCCAL (Group B) VACCINE SHARED DECISION-MAKING Aged Out No longer eligible based on patient's age to complete this topic MENINGOCOCCAL GROUPS A/C/Y/W VACCINE Aged Out No longer eligible based on patient's age to complete this topic Medical Devices Implanted Type Area Toggle Press Operator Device Identifier Shelf Expiration Date Model / Serial / Lot Cmnt Bone Djo Srg Cblt 40gm Hvisc Strl Implanted:Qty: 1 on 09/30/2019 by Corbin Person MD at [facility] [employer] 06/19/2020 [id number] / / [id number] Cmpnt Ptlr 28mm 1 Pg Wire Ascnt Arcm Kn Implanted:Qty: 1 on 09/30/2019 by Corbin Person MD at [facility] [employer] 05/12/2024 [id number] / / [id number] Tray Tib 75mm Kn Cocr I Beam Implanted:Qty: 1 on 09/30/2019 by Corbin Person MD at [facility] [employer] 08/22/2029 [id number] / / [id number] Cmpnt Fem Kn Rt Cr Cmnt Prm Vngrd Intlk Implanted:Qty: 1 on 09/30/2019 by Corbin Person MD at [facility] [employer] 07/25/2029 [id number] / / [id number] Brng [id number] Vngrd Arcm Kn Ant Stab Implanted:Qty: 1 on 09/30/2019 by Corbin Person MD at [facility] Right: Knee [employer] 11/19/2023 [id number] / / [id number] Brng [id number] Vngrd Arcm Kn Ant Stab Implanted:Qty: 1 on 07/01/2020 by Corbin Person MD at [facility] Left: Knee [employer] 02/05/2024 [id number] / / [id number] Cmnt Bone Djo Srg Cblt 40gm Hvisc Strl Implanted:Qty: 1 on 07/01/2020 by Corbin Person MD at [facility] Left: Knee [employer] 11/27/2020 [id number] / / [id number] Cmpnt Ptlr 28mm 1 Pg Wire Ascnt Arcm Kn Implanted:Qty: 1 on 07/01/2020 by Corbin Person MD at [facility] Left: Knee [employer] 04/29/2025 [id number] / / [id number] Cmpnt Fem Kn Lt Cr Cmnt Prm Vngrd Intlk Implanted:Qty: 1 on 07/01/2020 by Corbin Person MD at [facility] Left: Knee [employer] 04/27/2030 [id number] / / [id number] Tray Tib 71mm Kn Cocr I Beam Implanted:Qty: 1 on 07/01/2020 by Corbin Person MD at [facility] Left: Knee [employer] 04/03/2030 [id number] / / [id number] Procedures Procedure Name Priority Date/Time Associated Diagnosis Comments COMPREHENSIVE METABOLIC PANEL STAT 06/19/2020 12:55 PM CDT Preop examination from Last 3 Months or Most Recently Relevant to Health Maintenance Results * (ABNORMAL) COMPREHENSIVE METABOLIC PANEL (06/19/2020 12:55 PM CDT) Pathologist [facility] Glucose 105 70 - 105 mg/dL 06/19/2020 1:18 PM CDT [facility] Sodium 138 136 - 145 mmol/L 06/19/2020 1:18 PM CDT [facility] Potassium 3.6 3.5 - 5.1 mmol/L 06/19/2020 1:18 PM CDT [facility] Chloride 98 98 - 107 mmol/L 06/19/2020 1:18 PM CDT [facility] CO2 37(H) 23 - 31 mmol/L 06/19/2020 1:18 PM CDT [facility] Calcium 10.1 8.4 - 10.4 mg/dL 06/19/2020 1:18 PM CDT [facility] Anion Gap 3(L) 8 - 18 mmol/L 06/19/2020 1:18 PM CDT [facility] Comment:Attention clinician: Reference Range change. BUN 18 9.8 - 20.1 mg/dL 06/19/2020 1:18 PM CDT [facility] Creatinine 1.12(H) 0.57 - 1.11 mg/dL 06/19/2020 1:18 PM CDT [facility] Alkaline Phosphatase 105 40 - 150 U/L 06/19/2020 1:18 PM CDT [facility] Comment:Attention clinician: Reference Range change. ALT 42 0 - 61 U/L 06/19/2020 1:18 PM CDT [facility] AST 36(H) 5 - 34 U/L 06/19/2020 1:18 PM CDT [facility] Protein Total 7.0 6.4 - 8.3 gm/dL 06/19/2020 1:18 PM CDT [facility] Albumin 4.0 3.2 - 4.6 gm/dL 06/19/2020 1:18 PM CDT [facility] Bilirubin Total 1.0 0.2 - 1.2 mg/dL 06/19/2020 1:18 PM CDT [facility] Comment:Attention clinician: Reference Range change. eGFR by MDRD 48 mL/min/1.7 3m2 06/19/2020 1:18 PM CDT [facility] eGFR by MDRD 58 mL/min/1.7 3m2 06/19/2020 1:18 PM CDT [facility] Blood BLOOD SPECIMEN / Unknown Venipuncture / Unknown 06/19/2020 12:55 PM CDT 06/19/2020 1:02 PM CDT Kaylen Hopkins SUPERINTENDENT AUTOMOTIVE-SHIPBUILDING DRAFTSPERSON LAB - CHEMISTRY ORDER VERÓNICA Final Result [facility] [address] [place] [address] from Last 3 Months or Most Recently Relevant to Health Maintenance Insurance MEDICARE [facility] [place] [phone] Advance Directives * Full Code (Latest Code Status on File) Date Activated Date Inactivated Comments 07/01/2020 10:11 AM 07/02/2020 1:11 PM * Full Code Date Activated Date Inactivated Comments 09/30/2019 9:50 AM 10/01/2019 2:28 PM Care Teams Party Host/Hostess Relationship Specialty Start Date End Date Delphine Fernández DO [address] [place] [address] PCP - General Family Medicine 06/11/19
--- OUTSIDE RECORDS SUMMARY | 2024-10-09 19:16 | XMS_ITS | Clinical Summary ---
Author Organization [facility] Address [facility] [place] [address] Care Team Providers Care Backroom Associate Name Role Phone Delphine Fernández DO Primary Care Provider [phone] Chiqui Heath APNP Unavailable [phone] Allergies Active Allergy Reactions Criticality Noted Date Comments Donepezil Hcl GI Upset Low 09/04/2023 Medications multi vitamin/minerals tablet Take 1 tablet by mouth daily. Active calcium carbonate 600 MG tablet Take 1 tablet (600 mg total) by mouth. Active calcium carbonate-vitamin D 600-200 MG-UNIT Tab Take by mouth 2 (two) times daily. Active hydroCHLOROthiazid e (HYDRODIURIL) 25 MG tabletIndications: Essential (primary) hypertension Take 1 tablet (25 mg total) by mouth every morning. 90 tablet 3 4 Active metoprolol tartrate (LOPRESSOR) 50 MG tabletIndications: Essential (primary) hypertension Take 1 tablet (50 mg total) by mouth 2 (two) times daily. 180 tablet 3 4 Active telmisartan (MICARDIS) 20 MG TabIndications:Ess ential (primary) hypertension Take 1 tablet (20 mg total) by mouth daily. 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 90 capsule 3 5 Active apixaban (ELIQUIS) 5 MG tabletIndications: Paroxysmal atrial fibrillation (CMS/HCC HHS/HCC) Take 1 tablet (5 mg total) by mouth 2 (two) times daily. 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 06/23/2020 09/30/2024 Primary osteoarthritis of right knee 09/28/2018 09/30/2024 Kidney lesion 09/20/2017 08/24/2023 Cyst of right kidney 07/10/2017 020 Abnormal liver function 01/06/201708/05 Blepharitis of both eyes 12/14/2012 Diverticulitis of large inte rey without perforation or abscess without bleeding 10/06/2010 08/24/2023 Overview (09/03/2019): On CT abd/pelvis, 10/06/10 Encounters Date Type Department Care Team Description 10/07/2024 Telephone [facility], [address] [address] Jossy Mckeon, RMMckenzie Consult 10/04/2024 11:20 AM CDT Office Visit [place] [address] [facility], [address] [place] [phone] Delphine Fernández DO ER F/U (Pt went to ED in [place] for chest pains and is f/u) 10/04/2024 Travel 10/03/2024 Scan HEALTH INFO SRVCS Scanned, [facility] Image (SCAN); ECG (SCAN); Lab (SCAN) 09/30/2024 3:20 PM CDT Office Visit [place] [address] [facility], [address] [place] [phone] Delphine Fernández DO Follow Up (Pt is here for yearly check up) 09/30/2024 Travel 09/25/2024 Patient Outreach [place] [address] [facility], [address] [place] [phone] Delphine Fernández DO Pre-visit Gap Closure from Last 3 Months Immunizations Immunization Administration Dates Next Due Fluzone 6 Months+ Quad (0.5 mL Prefilled Syringe) 12/20/2019,12/26/2016,11/28/2014 Fluzone High Dose - >Age 65 (Prefilled Syringe) 02/23/2022,12/30/2020 Influenza (Generic) 03/14/2008 Influenza Adult (Generic) 12/04/2017,12/26/2016, 11/28/2014 MODERNA COVID-19 (12+) MRNA, LNP-S, PF, 100 MCG/ 0.5 ML DOSE 07/21/2020,06/23/2020 Pneumococcal (Pneumovax 23) 11/28/2014 Pneumococcal (Prevnar 13) 08/26/2016 Td (Tenivac) preservative free 07/05/2003 Family History Medical History Relation Comments atrial fibrilation Brother Hypertension Father MA Father Alzheimers Mother Hyperlipidemia Mother Hypertension Mother Hypertension Sister Kidney Disease Sister Had growth remov ed Relation Status Comments Brother Father Mother Sister Social History Tobacco Use Types Packs/Day Years [...] 6.4 oz) 10/04/2024 11:24 AM CDT Height 163.2 cm (5' 4.25) 09/30/2024 3:03 PM CD T Body Mass Index 33.79 09/30/2024 3:03 PM CDT Plan of Treatment Upcoming Encounters Date Type Department Care Team (Late st Contact Info) Description 10/22/2024 9:00 AM CDT Appointment [facility] Ultrasound [address] [place] [address] Delphine Fernández DO [address] [place] [address] Health Maintenance Due Date Last Done Comments Zoster Vaccines (1 of 2) 09/18/1999 DTaP, Tdap and Td Vaccines ( 1 - Tdap) 07/06/2003 07/05/2003 Annual Medicare Wellness Visit 2014 COVID-19 Vaccine (3 - 2024-2 5 season) 2023 07/21/2020, 06/23/2020 Colorectal Cancer Screening Colonoscopy (10 Years) 03/04/2024 03/04/2019, 03/04/2019 RSV Immunization or 60+ Years (1 - 1-dose 75+ series) 2024 Pneumococcal Vaccine: 50+ Years Completed 08/26/2016, 11/28/2014 Hepatitis C Completed 07/19/2021 Dexa Scan (General) Completed 10/03/2023, 08/20/2021 PHQ-2 (Physician [place]) Completed 09/30/2024 Meningococcal B Vaccine Aged Out No l onger eligible based on patient's age to complete this topic Meningococcal Vaccine Aged Out No dontae marisel eligible based on patient's age to complete this topic RSV Immunizations Under 20 Months Aged Out No longer eligible b ased on patient's age to complete this topic Procedures Procedure Name Priority Date/Time Associated Diagnosis Comments ELECTROCARDIOGRAM (NON MIDMARK ACQUIRED) Routine 10/04/2024 11:49 AM CDT Paroxysmal atrial fibrillation ([facility]HCC [facility]) ECG GENERIC (SCAN ORDER) 10/03/2024 OUTSIDE LAB (SCAN ORDER) 10/03/2024 OUTSIDE LAB (SCAN ORDER) 10/03/2024 OUTSIDE LAB (SCAN ORDER) 10/03/2024 OUTSIDE LAB (SCAN ORDER) 10/03/2024 IMAGE GENERIC 10/03/2024 BONE DENSITY/DEXA Routine 10/03/2023 1:5 6 PM CDT Postmenopausal HEPATITIS C ANTIBODY W/RFX TO HCV RNA Routine 07/19/2021 8:26 AM CDT COLONOSCOPY GENERIC (SCAN ORDER) Routine 03/04/2019 from Last 3 Months or Most Recently Relevant to Health Maintenance Results * ELECTROCARDIOGRAM (NON MIDMARK ACQUIRED) (10/04/2024 11:49 AM CDT) 10/04/2024 11:4 9 AM CDT Narrative [facility] RAD - 10/04/2024 11:52 AM CDT [facility] [address] [place] [address] Test Date: 2024-10-04 Pat Name: BRADLY CASTRO Department: 171 Room: 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 Delphine Fernández DO PROCEDURES-ORDERABLE NO CHARG E Final Result [facility] * ECG GENERIC (SCAN ORDER) (10/03/2024) 10/03/2024 [facility] Scanned SCANNING Final Resu lt * OUTSIDE LAB (SCAN ORDER) (10/03/2024) Only the most recent of4 resultswithin the time period is included. 10/03/2024 [facility] Scanned SCANNING Final Resu lt * IMAGE GENERIC (10/03/2024) Anatomical Region Laterality Modality Other 10/03/2024 [facility] Scanned SCANNING Final Resu lt * BONE DENSITY/DEXA (10/03/2023 1:56 PM CDT) Anatomical Region Laterality Modality Bone Mammography 10/03/2023 6:11 PM CDT Impressions 10/03/2023 6:12 PM CDT IMPRESSION: WHO Classification: normal. FRAX: 0.1% chance of hip fracture and 5.0% chance of major osteoporotic fracture over the next 10 years. Referred By: DELPHINE FERNÁNDEZ Interpreted By: William Enrique MD, 10/03/2023 6:11 PM Narrative 10/03/2023 6:12 PM CDT Examination: Bone Density Axial Exam Date/Time: 10/03/2023 1:14 PM Reason For Exam: Postmenopausal Comparison: 08/14/2021 DEXA scan Findings: DEXA bone densitometry The bone mineral density (BMD) was determined by dual-energy x-ray absorptiometry, the results are as follows: AP Lumbar Spine L1 through L4 BMD Patient (GM/SQCM): 1.628 T-Score (Standard deviations from young adult peak bone density): 5.3 Left femoral neck: BMD Patient (GM/SQCM): 1.038 T-Score (Standard deviations from young adult peak bone density): 1.7 Total Left femur: BMD Patient (GM/SQCM): 1.195 T-Score (Standard deviations from young adult peak bone density): 2.1 Recommendations: All patients should ensure an adequate intake of dietary calcium and vitamin D. The NOF recommend adults under the age of 50 need 1000 mg of calcium and 400-800 IU of vitamin D daily. Effective therapy for the prevention and treatment of osteoporosis include biphosphonates. Follow-up: People with diagnosed cases of osteoporosis or at high risk for fracture should have regular bone mineral density test. For patients eligible for Medicare, routine testing is allowed once every 2 years. Testing frequency can be increased to one year for patients who have rapidly progressing disease, those who are receiving or discontinuing medical therapy to restore bone mass, or have additional risk factors. Procedure Note William Enrique MD - 10/03/2023 Examination: Bone Density Axial Exam Date/Time: 10/03/2023 1:14 PM Reason For Exam: Postmenopausal Comparison: 08/14/2021 DEXA scan Findings: DEXA bone densitometry The bone mineral density (BMD) was determined bydual-energy x-ray absorptiometry, the results are as follows: AP Lumbar Spine L1 through L4 BMD Patient (GM/SQCM): 1.628 T-Score (Standard deviations from young adult peak bonedensity): 5.3 Left femoral neck: BMD Patient (GM/SQCM): 1.038 T-Score (Standard deviations from young adult peak bonedensity): 1.7 Total Left femur: BMD Patient (GM/SQCM): 1.195 T-Score (Standard deviations from young adult peak bonedensity): 2.1 Recommendations: All patients should ensure an adequate intake of dietary calcium andvitamin D. The NOF recommend adults under the age of 50 need 1000 mg ofcalcium and 400-800 IU of vitamin D daily. Effective therapy for theprevention and treatment of osteoporosis include biphosphonates. Follow-up: People with diagnosed cases of osteoporosis or at high risk for fractureshould have regular bone mineral density test. [facility], routine testing is allowed once every 2 years. Testing frequencycan be increased to one year for patients who have rapidly progressingdisease, those who are receiving or discontinuing medical therapy torestore bone mass, or have additional risk factors. IMPRESSION: WHO Classification: normal. FRAX: 0.1% chance of hip fracture and 5.0% chance of major osteoporoticfracture over the next 10 years. Referred By: DELPHINE FERNÁNDEZ Interpreted By: William Enrique MD, 10/03/2023 6:11 PM Delphine Fernández DO DEXA Final Result * HEPATITIS C ANTIBODY W/RFX TO HCV RNA (07/19/2021 8:26 AM CDT) HEPATITIS C AB NON-REACTI VE NON-REACT DAVID [facility] SIGNAL TO CUTOFF 0.01 <[address] [facility] Comment: HCV antibody was non-reactive. There is no laboratory evidence of HCV infection. In most cases, no further action is required. However, if recent HCV exposure is suspected, a test for HCV RNA (test code 63736) is suggested. For additional information please refer to http://education.OneBreath/faq/DVZ36y2 (This link is being provided for informational/ educational purposes only.) 07/19/2021 8:26 AM CDT 07/21/2021 9:53 AM CDT us Delphine Fernández DO LABORATORY Final Result [facility] [address] [address] [id number] * COLONOSCOPY (03/04/2019) us Documents Scanned SCANNING Final Result [facility] from Last 3 Months or Most Recently Relevant to Health Maintenance Insurance [employer] MEDICARE [place] [employer] Care Teams Backroom Associate Relationship Specialty Start Date End Date Delphine Fernández DO [address] [place] [address] PCP - General 09/27/16 Chiqui Heath APNP [address] [place] [address] PCP - Med Group - [facility] Attributed Provider 12/04/16
[2024-10-09 20:27] LABS: Troponin I < 0.012 ng/mL (0.000-0.034)
--- NOTE | 2024-10-09 20:27 | ECG_ITS ---
Test Date: 2024-10-09 20:03:42 Measurements Intervals [place] Rate: 93 P: 0 IN: 0 QRS: 30 QRSD: 90 T: 33 QT: 375 QTc: 469 Interpretive Statements ATRIAL FIBRILLATION WITH FREQUENT VENTRICULAR PREMATURE COMPLEXES LOW QRS VOLTAGE IN PRECORDIAL LEADS BORDERLINE ST-T WAVE ABNORMALITY- DIFFUSE LEADS ABNORMAL ECG Compared to ECG 10/09/2024 17:14:48 NO SIGNIFICANT CHANGE Electronically Signed On 10-10-2024 06:16:12 CDT by Trenton Cloud D.O.
[2024-10-09 21:27] VITALS: BP 147/68; PULSE 75; RESP 20; O2SAT 98
== END 2024-10-09 21:28 | disposition home or self-care (01) ==
PROVIDERS: Emergency Provider Emergency Medicine
DX: T78.40XA Allergy, unspecified, initial encounter (principal); R07.89 Other chest pain; L29.9 Pruritus, unspecified; I48.91 Unspecified atrial fibrillation; Z79.01 Long term (current) use of anticoagulants; Z79.82 Long term (current) use of aspirin; I49.3 Ventricular premature depolarization; R94.31 Abnormal electrocardiogram [ECG] [EKG]; X58.XXXA Exposure to other specified factors, initial encounter
CPT/HCPCS: 36415; 71045; 80053; 84484; 85025; 85610; 85730; 93005; 96374; 96375; 99284; J2919; J7040